=== PATIENT | female | born 1995 | race African-American/Black ===

== ENCOUNTER 2024-12-25 14:44 | Emergency (ER) | payer MEDICAID, OTHER ==
[~2024-12-25] VITALS: Ht 170.2 cm; Wt 101.0 kg
[2024-12-25 16:39] LABS: CREATININE 0.7 mg/dL (0.6-1.0); UREA NITROGEN BLOOD 7 mg/dL (9-23)
[2024-12-25 16:40] LABS: TROPONIN I HIGH SENSITIVITY < 4 ng/L (3.0-34)
[2024-12-25 16:42] LABS: B-HCG QUANTITATIVE < 1 mIU/mL (<6)
[2024-12-25 16:46] LABS: INR 1.0
[2024-12-25 18:10] LABS: BASOPHILS % 0.9 % (0.0-2.0); EOSINOPHILS % 0.5 % (0.0-5.0); LYMPHOCYTES % 24.4 % (20.0-50.0); MEAN PLATELET VOLUME 8.6 fl (7.4-10.4); MONOCYTES % 12.7 % (2.0-8.0); NEUTROPHILS % 61.5 % (40.0-76.0); PLATELET 319 x1000/uL (130-400); RED BLOOD CELL COUNT 4.24 mill/uL (4.2-5.4); RED CELL DISTRIBUTION WIDTH 20.5 % (11.6-14.6)
[2024-12-25 18:13] LABS: ADD RBC MORPHOLOGY YES
[2024-12-25 18:17] LABS: HEMOGLOBIN. 6.8 g/dL (12.0-16.0)
[2024-12-25 18:18] LABS: HEMATOCRIT. 23.9 % (36.0-48.0)
[2024-12-25 19:12] LABS: PLATELET ESTIMATE NORMAL
[2024-12-25] MEDS ORDERED: FERR324T4 MT (21:36)
[2024-12-25] MEDS ORDERED: ONDA4TAB50 MT (21:39)
[2024-12-25 22:44] VITALS: BP 121/70; PULSE 85; RESP 18; TEMP 36.6; O2SAT 97
== END 2024-12-25 22:50 | disposition home or self-care (01) ==
LOC: ER 14:44 → CMPBEDREQ 12-26 08:55
DX: D64.9 Anemia, unspecified (principal); N89.8 Other specified noninflammatory disorders of vagina; Z79.899 Other long term (current) drug therapy
CPT/HCPCS: 36415; 36430; 71045; 80048; 84484; 84702; 85025; 86850; 86900; 86920; 93005; 99285; P9016